=== PATIENT | female | born 1960 ===

== ENCOUNTER 2017-02-25 04:50 | Emergency (ER) | payer BC ==
[2017-02-25 04:50] VITALS: BMI 29.0
[2017-02-25 05:04] VITALS: RESP 20
--- NOTE | 2017-02-25 05:18 | C.PDOC ---
Time Seen by Provider: 02/25/17 05:05 Chief Complaint (Nursing): Abdominal Pain Past Medical History Vital Signs: Last Vital Signs Temp 98 F 02/25/17 04:58 Pulse 72 02/25/17 04:58 Resp 20 02/25/17 04:58 BP 114/79 02/25/17 04:58 Pulse Ox 97 02/25/17 04:58 Surgical History: Endoscopy (with biopsy) Denies: Pacemaker Family History: States: Unknown Family Hx - Social History Hx Alcohol Use: Yes (RARE) Hx Substance Use: No - Immunization History Hx Tetanus Toxoid Vaccination: No Hx Influenza Vaccination: No Hx Pneumococcal Vaccination: No ED Course And Treatment O2 Sat by Pulse Oximetry: 97 Progress Note: Pt was signed out to me at 1:[address] Edmond to reassess pt after meds. I ordered U/A, followed by CT scan of the abdomen/pelvis which showed Left emphysematous pyelonephritis. Progress - Interventions Interventions:: Observation, Intravenous fluid - Medications Administered Intravenous: Antiemetic, Opiate, Other (Abx) - Data Reviewed Data Reviewed: Lab, Diagnostic imaging, Old records - Patient Status Patient status: Partially improved - Critical Care Citical Care: Excluding Proc Time Critical Care Time: 45 minutes - Continuity of Care Discussed patient case with:: Patient, Family-HIPPA compliant, ED Nurse, On- call PMD-pt unassigned - Patient Plan Patient Plan: Admission Disposition Discussed With DrMary: Larry Lozano Comment: He accepted pt on hospitalist service. Doctor Will See Patient In The: Hospital Counseled Patient/Family Regarding: Studies Performed, Diagnosis - Disposition Disposition: HOSPITALIZED Disposition Time: 05:20 Condition: GUARDED - POA Present On Arrival: Poor Glycemic Control - Clinical Impression Clinical Impression: Emphysematous pyelonephritis of left kidney, Uncontrolled diabetes mellitus
--- NOTE | 2017-02-25 05:37 | C.PDOC ---
History Of Present Illness 56 y/o female presents to ED c/o diffuse abdominal pain, intermittently since last night. Patient reports past history of similar pain over the past few months and has had multiple workups, including endoscopy and biopsy on Wednesday ( 2 days ago). Patient denies nausea, vomiting, diarrhea. She notes she is currently taking fiber for constipation and has had normal bowel movements. Denies fever, dysuria or other urinary symptoms. Time Seen by Provider: 02/25/17 05:05 Chief Complaint (Nursing): Abdominal Pain History Per: Patient History/Exam Limitations: no limitations Onset/Duration Of Symptoms: Days Current Symptoms Are (Timing): Still Present Location Of Pain/Discomfort: Diffuse Radiation Of Pain To:: None Quality Of Discomfort: "Pain" Associated Symptoms: denies: Nausea, Vomiting, Diarrhea, Constipation, Urinary Symptoms Recent travel outside of the [place]: No Past Medical History Reviewed: Historical Data, Nursing Documentation, Vital Signs Vital Signs: Last Vital Signs Temp 98 F 02/25/17 04:58 Pulse 72 02/25/17 04:58 Resp 20 02/25/17 04:58 BP 114/79 02/25/17 04:58 Pulse Ox 97 02/25/17 06:39 - Medical History PMH: No Chronic Diseases Surgical History: Endoscopy (with biopsy) Family History: States: Unknown Family Hx - Social History Hx Alcohol Use: Yes (RARE) Hx Substance Use: No - Immunization History Hx Tetanus Toxoid Vaccination: No Hx Influenza Vaccination: No Hx Pneumococcal Vaccination: No Review Of Systems Except As Marked, All Systems Reviewed And Found Negative. Constitutional: Negative for: Fever, Chills Respiratory: Negative for: Cough Gastrointestinal: Positive for: Abdominal Pain. Negative for: Nausea, Vomiting , Diarrhea Genitourinary: Negative for: Dysuria, Hematuria Skin: Negative for: Rash Neurological: Negative for: Dizziness Physical Exam - Physical Exam Appears: Non-toxic, No Acute Distress Skin: Normal Color, Warm, Dry Head: Atraumatic, Normacephalic Oral Mucosa: Moist Chest: Symmetrical Cardiovascular: Rhythm Regular Respiratory: Normal Breath Sounds, No Rales, No Rhonchi, No Wheezing Gastrointestinal/Abdominal: Soft, Tenderness (minimal, diffuse ), No Guarding, No Rebound Back: No CVA Tenderness Extremity: Normal ROM, Capillary Refill (< 2 sec. ) Neurological/Psych: Oriented x3, Normal Speech, Normal Cognition ED Course And Treatment - Laboratory Results Result Diagrams: 02/25/17 05:40 02/25/17 05:40 O2 Sat by Pulse Oximetry: 97 (RA) Pulse Ox Interpretation: Normal Progress Note: Labs ordered. Treated with morphine and IVFs. Disposition Counseled Patient/Family Regarding: Diagnosis, Need For Followup, Rx Given - Disposition Disposition: HOME/ ROUTINE Disposition Time: 06:43 Condition: STABLE Additional Instructions: Please keep appt with Dr Lewis Return to ER if worse Prescriptions: Dicyclomine [Dicyclomine HCl] 10 mg PO QID #14 cap Instructions: Acute Abdominal Pain (ED) - Clinical Impression Clinical Impression: Abdominal pain - PA / INSULATOR HELPER / Resident Statement MD/DO has reviewed & agrees with the documentation as recorded. - Scribe Statement The provider has reviewed the documentation as recorded by the Leonel Doll Provider Scribe Attestation: All medical record entries made by the Scribpasha were at my direction and personally dictated by me. I have reviewed the chart and agree that the record accurately reflects my personal performance of the history, physical exam, medical decision making, and the department course for this patient. I have also personally directed, reviewed, and agree with the discharge instructions and disposition.
[2017-02-25 05:45] LABS: BASO # 0.1 K/uL (0.0-0.2); BASO % 0.9 % (0.0-2.0); EOS # 0.3 K/uL (0.0-0.7); EOS % 4.5 % (0.0-4.0); HEMATOCRIT 38.1 % (34.0-47.0); LYMPH # 1.2 K/uL (1.0-4.3); LYMPH % 21.2 % (20.0-40.0); MEAN CELL VOLUME 84.2 fL (81.0-99.0); MEAN CORPUSCULAR HGB CONC 32.1 g/dL (33.0-37.0); MEAN PLATELET VOLUME 7.1 fL (7.2-11.7); MONO # 0.3 K/uL (0.0-0.8); MONO % 5.1 % (0.0-10.0); RED CELL DISTRIBUTION WIDTH 14.6 % (11.5-14.5); WHITE BLOOD COUNT 5.7 K/uL (4.8-10.8)
[2017-02-25 05:55] LABS: CHLORIDE 104 mmol/L (98-107); SODIUM 140 mmol/L (132-148)
[2017-02-25 05:56] LABS: POTASSIUM 4.2 mmol/L (3.6-5.2)
[2017-02-25 05:58] LABS: ALB/GLOB RATIO 1.3 (1.0-2.1); ALKALINE PHOSPHATASE 88 U/L (38-126); ALT/SGPT 36 U/L (9-52); AST/SGOT 23 U/L (14-36); BILIRUBIN,TOTAL 0.4 mg/dL (0.2-1.3); BLOOD UREA NITROGEN 13 mg/dL (7-17); CALCIUM 8.9 mg/dl (8.6-10.4); CARBON DIOXIDE 23 mmol/L (22-30); GFR AFRICAN-AMERICAN > 60; GLUCOSE,RANDOM 161 mg/dL (65-105); TOTAL PROTEIN 6.4 g/dL (6.3-8.3)
[2017-02-25 06:18] LABS: RBC URINE < 1 /hpf (0-3); URINE BACTERIA RARE (<OCC); URINE BILIRUBIN NEGATIVE (NEGATIVE); URINE BLOOD NEGATIVE (NEGATIVE); URINE COLOR Yellow (YELLOW); URINE GLUCOSE (UA) NORMAL (Normal); URINE KETONE NEGATIVE (NEGATIVE); URINE LEUKOCYTE ESTERASE NEG Leu/uL (Negative); URINE PROTEIN NEGATIVE (NEGATIVE); URINE UROBILINOGEN NORMAL mg/dL (0.2-1.0); WBC URINE < 1 /hpf (0-5)
[2017-02-25 06:57] VITALS: BP 96/60; PULSE 57; TEMP 98.3; O2SAT 96
== END 2017-02-25 06:57 | disposition home or self-care (01) ==
LOC: C.ER 04:50
DX: R10.9 Unspecified abdominal pain (principal)
CPT/HCPCS: 80053; 81001; 83690; 85025; 96374; 99284; J2270

== ENCOUNTER 2017-03-26 06:36 | Day surgery (SDC) | payer BC ==
[2017-03-26 07:13] VITALS: BMI 31.4
[2017-03-26] MEDS ORDERED: Lidocaine Hydrochloride 5 ML INJ ONE (08:11)
[2017-03-26] MEDS ORDERED: Propofol 10 mg/ml Inj (20 ML) ONE ×2 (08:11→08:33)
[2017-03-26 08:58] LABS: CHLORIDE 104 mmol/L (98-107); SODIUM 144 mmol/L (132-148)
[2017-03-26 09:00] LABS: GFR AFRICAN-AMERICAN > 60
[2017-03-26 09:01] LABS: ALB/GLOB RATIO 1.5 (1.0-2.1); ALKALINE PHOSPHATASE 103 U/L (38-126); ALT/SGPT 23 U/L (9-52); BILIRUBIN,TOTAL 1.2 mg/dL (0.2-1.3); BLOOD UREA NITROGEN 9 mg/dL (7-17); CARBON DIOXIDE 27 mmol/L (22-30); GLUCOSE,RANDOM 125 mg/dL (65-105); TOTAL PROTEIN 7.9 g/dL (6.3-8.3)
[2017-03-26 09:02] LABS: BASO # 0.1 K/uL (0.0-0.2); BASO % 1.2 % (0.0-2.0); CALCIUM 9.3 mg/dl (8.6-10.4); EOS # 0.1 K/uL (0.0-0.7); EOS % 3.3 % (0.0-4.0); HEMATOCRIT 33.9 % (34.0-47.0); LYMPH # 1.2 K/uL (1.0-4.3); LYMPH % 29.5 % (20.0-40.0); MEAN CORPUSCULAR HEMOGLOBIN 26.1 pg (27.0-31.0); MEAN CORPUSCULAR HGB CONC 31.7 g/dL (33.0-37.0); MEAN PLATELET VOLUME 7.4 fL (7.2-11.7); MONO # 0.3 K/uL (0.0-0.8); MONO % 7.3 % (0.0-10.0); RED CELL DISTRIBUTION WIDTH 14.4 % (11.5-14.5); WHITE BLOOD COUNT 4.1 K/uL (4.8-10.8)
[2017-03-26 09:03] LABS: POTASSIUM 5.7 mmol/L (3.6-5.2)
[2017-03-26 09:04] LABS: AST/SGOT 46 U/L (14-36)
[2017-03-26 09:09] LABS: MEAN CELL VOLUME 82.2 fL (81.0-99.0)
[2017-03-26 09:14] VITALS: O2SAT 100
[2017-03-26 09:31] LABS: CARCINOEMBRYONIC ANTIGEN 19.9 ng/mL (0-3.0)
[2017-03-26 09:54] VITALS: BP 108/67; PULSE 61; RESP 12; TEMP 97
== END 2017-03-26 09:50 | disposition home or self-care (01) ==
LOC: C.ENDO 06:36
PROVIDERS: ATTEND Internal Medicine
DX: D12.3 Benign neoplasm of transverse colon (principal); K57.30 Diverticulosis of large intestine without perforation or abscess without bleeding; K62.1 Rectal polyp; D12.4 Benign neoplasm of descending colon; D12.5 Benign neoplasm of sigmoid colon; K64.8 Other hemorrhoids; C18.7 Malignant neoplasm of sigmoid colon; C18.4 Malignant neoplasm of transverse colon
CPT/HCPCS: 36415; 45388; 80053; 82378; 82948; 85025; 88305; J2704